=== PATIENT | female | born 1960 | race Caucasian/White ===

== ENCOUNTER 2016-06-05 07:23 | Day surgery (SDC) | payer OTHER ==
[2016-06-04 13:13] VITALS: BMI 25.5
[2016-06-05] MEDS ORDERED: MIDAZOLAM HCL 2 MG/2 ML SINGLE DOSE VIAL ONE (09:05)
[2016-06-05] MEDS ORDERED: PROPOFOL 20 ML ONE (09:27)
[2016-06-05] MEDS ORDERED: ROCURONIUM BROMIDE 50 MG/5 ML VIAL ONE (09:28)
[2016-06-05] MEDS ORDERED: ceFAZolin SODIUM 1 GM VIAL ONE (10:01)
[2016-06-05] MEDS ORDERED: NEOSTIGMINE METHYLSULFATE 0.5 MG/ML - 10 ML MDV ONE (10:01)
[2016-06-05] MEDS ORDERED: ONDANSETRON 4 MG/2 ML VIAL ONE (10:02)
[2016-06-05] MEDS ORDERED: GLYCOPYRROLATE 0.2 MG/1 ML VIAL ONE ×2 (10:02)
[2016-06-05] MEDS ORDERED: BACITRACIN 30 GM TUBE TOPICAL OINTMENT ONE (10:42)
[2016-06-05] MEDS ORDERED: ONDANSETRON 4 MG/2 ML VIAL IVPUSH ONE (11:10)
[2016-06-05] MEDS ORDERED: oxyCODONE HCL 5 MG TABLET PO PRN (11:12)
[2016-06-05] MEDS ORDERED: ACETAMINOPHEN 1000 MG/100 ML VIAL (NON FORMULARY) IVPB ONE (11:50)
[2016-06-05] MEDS ORDERED: ONDANSETRON 4 MG/2 ML VIAL IVPUSH PRN (11:52)
[2016-06-05] MEDS ORDERED: PROMETHAZINE HCL 25 MG/1 ML VIAL IVPUSH PRN (11:52)
[2016-06-05] MEDS ORDERED: ACETAMINOPHEN INJECTION 100 ML IVPB ONE (11:53)
--- NOTE | 2016-06-05 12:16 | OP ---
DATE OF OPERATION: 06/05/2016 SURGEON: Lali Asencio MD PHOTOVOLTAIC INSTALLER: None. ANESTHESIA: General. ANESTHESIOLOGIST: Emanuel Camargo MD PREOPERATIVE DIAGNOSES: 1. Right small finger malunion. 2. Right small finger stiffness. POSTOPERATIVE DIAGNOSES: 1. Right small finger malunion. 2. Right small finger stiffness. PROCEDURE PERFORMED: 1. Right small finger proximal phalanx osteotomy and K-wire fixation. 2. Tenolysis right small finger extensor digitorum communis tendon. 3. Tenolysis right small finger extensor digitorum minimi tendon. DISPOSITION: Recovery. COMPLICATIONS: None. ESTIMATED BLOOD LOSS: Minimal. SPECIMENS: None. IMPLANTS: 0.045 K-wires x2 to right small finger proximal phalanx. INDICATIONS FOR PROCEDURE: The patient is known from consultation to have right small finger malunion with finger stiffness. Risks, benefits, and alternatives were discussed with the patient. Consent was obtained. CONSENT PRIOR TO THE PROCEDURE: The patient had ample time to ask all her questions. Had these questions answered to her satisfaction. Risks discussed including, but were not limited to, infected, bleeding, risk of anesthesia, risk of poor scarring, damage to adjacent nerves, vessels, tendons, and other structures, risk of nonunion, risk of malunion, risk of finger stiffness, risk of early arthritis, risk of need for 1 or more additional surgeries. Understanding these risks, the patient gave consent to proceed with the procedure. DESCRIPTION OF PROCEDURE: The patient was taken to the operating room and placed supine on the operating room table by the operating room team. After adequate general anesthesia was induced, the patient's right upper extremity was prepped and draped in a standard sterile fashion after the placement of a well-padded upper arm tourniquet. The limb was exsanguinated from distal to proximal with an Esmarch bandage, and after standard operative time-out, the procedure was begun. Fluoroscopy was brought in, and the finger was imaged for baseline imaging. The finger was examined and seen to have a malunion with significant angulation. Attempt to move this closed and to percutaneously break it up were abandoned once the fracture plane was imaged with the C-arm and decision to open this was made. Additionally, the finger stiffness was considered, and tenolysis was indicated. Incision was made, and attention was first turned to tenolysis. The extensor digitorum communis tendon was evaluated and seem to be frozen in with significant scar tissue. A 15 blade was used to tenolyse the tendon circumferentially on the finger and into the dorsum of the hand. Once this was freed, attention was turned to the extensor digitorum minimi tendon. The extensor digitorum minimi tendon was tenolysed free from scar tissue with a 15 blade circumferentially in the finger and the hand. Attention was then turned to the malunion. The tenolysed tendons were retracted and the malunion site was exposed on the proximal phalanx of the right small finger. An osteotome was used to very gently make an osteotomy with the attempt to recreate the fracture site. Osteotomy was performed. Under fluoroscopic guidance, reduction was then performed, and a 0.045 K-wire was introduced across the MP joint with the MP joint in flexion. With this reduction, rotation was then checked, and the finger was held in appropriate rotational correction, and a 2nd 0.045 K-wire was placed across the MP joint. Reduction was checked as was rotation, and these were felt to be optimal. Final fluoroscopic images were taken. The wound was then copiously irrigated and closed with 5-0 nylon sutures in horizontal mattress fashion. At the end of the case, counts were correct x2. The patient tolerated the procedure well and was taken to the post anesthesia care unit in stable condition. Postoperative examination showed the patient resting comfortably in the post anesthesia care unit. Fingertips were well perfused protruding from the well- padded forearm based intrinsic plus splint. Operative findings and discharge instructions were reinforced. LALI ASENCIO M.D. [id number]
[2016-06-05] MEDS ORDERED: oxyCODONE HCL 5 MG TABLET ONE (13:09)
[2016-06-05 14:52] VITALS: BP 144/84; PULSE 58; TEMP 98
== END 2016-06-05 13:45 | disposition home or self-care (01) ==
LOC: FASU 07:23
PROVIDERS: ATTEND Plastic Surgery
PROC: 0LN70ZZ Release Right Hand Tendon, Open Approach (ICD-10-PCS; 2016-06-05)
PROC: 0PST04Z Reposition Right Finger Phalanx with Internal Fixation Device, Open Approach (ICD-10-PCS; principal; 2016-06-05 10:02)
DX: S62.616A Displaced fracture of proximal phalanx of right little finger, initial encounter for closed fracture (principal); X58.XXXA Exposure to other specified factors, initial encounter; Y93.9 Activity, unspecified; Y92.9 Unspecified place or not applicable; M25.641 Stiffness of right hand, not elsewhere classified
CPT/HCPCS: 73140-TC-RT; 94760